=== PATIENT | male | born 1945 | race Asian ===

== ENCOUNTER 2018-01-21 10:55 | Emergency (ER) | payer MEDICARE, MEDICAID ==
[~2018-01-21] VITALS: Ht 160 cm; Wt 65.5 kg
[2018-01-21] MEDS ORDERED: METF500T6 PO (11:03)
[2018-01-21] MEDS ORDERED: HYDR25TA84 PO (11:03)
[2018-01-21] MEDS ORDERED: ALBU8HFA IH (11:03)
[2018-01-21] MEDS ORDERED: DORZ210OS OP (11:03)
[2018-01-21] MEDS ORDERED: DIPH-654 PO (11:03)
[2018-01-21] MEDS ORDERED: FERR-89 PO (11:03)
[2018-01-21] MEDS ORDERED: ASPI81 PO (11:03)
[2018-01-21] MEDS ORDERED: PANT40TA25 PO (11:03)
[2018-01-21] MEDS ORDERED: LISI-662 PO (11:03)
[2018-01-21] MEDS ORDERED: SIMV-259 PO (11:03)
[2018-01-21 12:33] LABS: CALCIUM, TOTAL 9.2 mg/dL (8.8-10.5); CREATININE 5.69 mg/dL (0.60-1.30); POTASSIUM 4.6 mmol/L (3.5-5.1)
[2018-01-21 12:37] LABS: PROTHROMBIN TIME 10.7 SEC (9.4-11.6)
[2018-01-21 12:52] LABS: BASOPHILS % (AUTO) 2.8 % (0.0-2.0); EOSINOPHILS % (AUTO) 8.4 % (1.0-6.0); HEMATOCRIT 32.8 % (41-53); HEMOGLOBIN 10.9 g/dL (13.5-17.5); LYMPHOCYTES # (AUTO) 1.1 K/uL (1.0-4.8); LYMPHOCYTES % (AUTO) 20.9 % (22.0-44.0); MEAN CORPUSCULAR HEMOGLOBIN 29.4 pg (26.0-34.0); MEAN CORPUSCULAR HGB CONC 33.1 G/dL (31.0-37.0); MEAN CORPUSCULAR VOLUME 89 fL (80-100); MONOCYTES # (AUTO) 0.6 K/uL (0.1-1.0); MONOCYTES % (AUTO) 10.4 % (2.0-9.0); NEUTROPHILS # (AUTO) 3.1 K/uL (1.8-7.7); NEUTROPHILS % (AUTO) 57.5 % (40.0-70.0); PLATELET COUNT (AUTO) 181 K/uL (150-450); RED CELL DISTRIBUTION WIDTH 17.1 % (11.5-14.5)
[2018-01-21 13:07] VITALS: BP 148/74
== END 2018-01-21 13:17 | disposition home or self-care (01) ==
LOC: EMS 10:57
DX: S45.992A Other specified injury of unspecified blood vessel at shoulder and upper arm level, left arm, initial encounter (principal); T82.838A Hemorrhage due to vascular prosthetic devices, implants and grafts, initial encounter; I10 Essential (primary) hypertension; E78.00 Pure hypercholesterolemia, unspecified; K21.9 Gastro-esophageal reflux disease without esophagitis; J45.909 Unspecified asthma, uncomplicated; Z88.0 Allergy status to penicillin; Z79.82 Long term (current) use of aspirin; Z79.84 Long term (current) use of oral hypoglycemic drugs; X58.XXXA Exposure to other specified factors, initial encounter; Y93.89 Activity, other specified; Y92.89 Other specified places as the place of occurrence of the external cause; Y99.8 Other external cause status
CPT/HCPCS: 99284